=== PATIENT | male | born 2000 | race African-American/Black ===

== ENCOUNTER 2022-06-14 14:48 | Emergency (ER) | payer OTHER ==
[~2022-06-14] VITALS: Ht 170.2 cm; Wt 89.8 kg
== END 2022-06-14 18:05 | disposition home or self-care (01) ==
LOC: ER 14:48
DX: N39.0 Urinary tract infection, site not specified (principal); Z20.822 Contact with and (suspected) exposure to COVID-19

== ENCOUNTER 2022-07-21 14:19 | Emergency (ER) | payer OTHER ==
[~2022-07-21] VITALS: Ht 182.9 cm; Wt 79.4 kg
== END 2022-07-21 17:13 | disposition home or self-care (01) ==
LOC: ER 14:19
DX: J06.9 Acute upper respiratory infection, unspecified (principal)